=== PATIENT | male | born 1975 | race Two or more races ===

== ENCOUNTER 2019-06-20 20:46 | Emergency (ER) | payer SELFPAY ==
[~2019-06-20] VITALS: Ht 162.6 cm; Wt 80.7 kg
--- NOTE | 2019-06-20 21:04 | NUR ---
[id number]. TO ER BED 15. UNABLE TO GET ANY INFORMATION. INTOXIXATED, SMELLS HEAVY OF ALCOHOL. PT ARROUSABLE BY TACTILE STIMULI, MUMBLING INCOHERENTLY BUT ABLE TO FOLLOW COMMANDS, RAISED BOTH HIS ARMS WHEN TOLD TO DO. NO NOTED NEURO DEFICIT. PT WAS FOUND LYING ON THE GROUND. NO NOTED INJURY. AWAITING MD FOR EVAL.
--- NOTE | 2019-06-21 00:27 | NUR ---
PT ASLEEP, NO ACUTE DISTRESS NOTED, RESP EVEN AND UNLABORED. VITAL SIGNS STABLE. SITTER STILL AT BEDSIDE, WILL CONTINUE TO MONITOR
--- NOTE | 2019-06-21 01:17 | NUR ---
pt in bed sleeping. nad noted
--- NOTE | 2019-06-21 05:00 | NUR ---
PT ASLEEP, NO ACUTE DISTRESS NOTED, RESP EVEN AND UNLABORED. VITAL SIGNS STABLE. SITTER STILL AT BEDSIDE, WILL CONTINUE TO MONITOR
--- NOTE | 2019-06-21 06:41 | NUR ---
Pt is awake. able to ambulate with assist on steady gait. md made aware. pt is cleared for discharge
--- NOTE | 2019-06-21 06:42 | NUR ---
Patient discharged to home in stable condition. Written and verbal after care instructions given. Patient verbalizes understanding of instruction. Pt ambulatory with a steady gait
[2019-06-21 06:45] VITALS: BP 123/67
== END 2019-06-21 06:45 | disposition home or self-care (01) ==
LOC: EDBD 20:53 → ER 20:53
DX: R41.82 Altered mental status, unspecified (principal); F10.129 Alcohol abuse with intoxication, unspecified; Y90.9 Presence of alcohol in blood, level not specified
CPT/HCPCS: 70450-TC